=== PATIENT | male | born 1950 | race Caucasian/White ===

== ENCOUNTER 2017-05-02 10:34 | Emergency (ER) | payer MEDICARE ==
[~2017-05-02] VITALS: Ht 170.2 cm; Wt 72.1 kg
[2017-05-02 11:28] VITALS: BP 148/95
== END 2017-05-02 12:10 | disposition home or self-care (01) ==
LOC: ER 10:34
DX: B86 Scabies (principal); F17.210 Nicotine dependence, cigarettes, uncomplicated; Z88.6 Allergy status to analgesic agent